=== PATIENT | female | born 1955 | race Caucasian/White ===

== ENCOUNTER 2021-03-03 04:07 | Observation (INO) | payer OTHER, MEDICAID ==
[~2021-03-03] VITALS: Ht 167.6 cm; Wt 125.1 kg
[2021-03-03 04:09] VITALS: BP 118/70
[2021-03-03] MEDS ORDERED: CYMBALTA60 MG PO (04:14)
[2021-03-03] MEDS ORDERED: KLOR-CON M2020 MEQ PO (04:15)
[2021-03-03] MEDS ORDERED: GABAPENTIN600 M1 PO (04:15)
[2021-03-03] MEDS ORDERED: LASIX 40 MG TAB40 MG PO (04:15)
[2021-03-03] MEDS ORDERED: [UNRECOGNIZED DRUG - REMARK] (04:17)
[2021-03-03 05:12] LABS: ABSOLUTE EOSINOPHILS 0.1 thou/uL (0.0-0.7); ABSOLUTE MONOCYTES 0.4 thou/uL (0.0-1.2); BASOPHILS 0.3 %; EOSINOPHILS 2.6 %; HEMATOCRIT 28.2 % (37.0-47.0); HEMOGLOBIN 8.7 gm/dL (12.0-15.0); LYMPHOCYTES 22.8 %; MCH 25.6 pg (26.0-34.0); MCHC 31.1 g/dL (28.0-37.0); MCV 82.4 fL (80.0-100.0); MONOCYTES 9.2 %; MPV 7.2 fl. (7.2-11.1); NUCLEATED RBCS 0 /100WBC; PLATELET COUNT* 256 thou/uL (150-400); POLYS 65.1 %; RBC 3.42 mil/uL (4.20-5.00); RDW-CV 17.8 % (10.5-14.5); WBC 4.6 thou/uL (4.0-11.0)
[2021-03-03 05:23] LABS: CALCIUM 8.7 mg/dL (8.5-10.1); CREATININE 0.7 mg/dL (0.6-1.3); POTASSIUM 3.8 mmol/L (3.5-5.1)
[2021-03-03 05:26] LABS: PROTIME 10.5 Seconds (9.20-11.50)
[2021-03-03 05:34] LABS: ALBUMIN 2.9 g/dL (3.4-5.0); TOTAL BILIRUBIN 0.4 mg/dL (<0.1-1.0); TOTAL PROTEIN 6.1 g/dL (6.4-8.2)
[2021-03-03 05:48] LABS: INFLUENZA A ANTIGEN Negative (Negative); INFLUENZA B ANTIGEN Negative (Negative)
[2021-03-03 07:59] LABS: URINE BILIRUBIN NEGATIVE (Negative); URINE BLOOD NEGATIVE (Negative); URINE CLARITY CLEAR; URINE COLOR YELLOW; URINE GLUCOSE-RANDOM NEGATIVE (Negative); URINE KETONES NEGATIVE (Negative); URINE LEUKOCYTES-REFLEX NEGATIVE (Negative); URINE NITRITE-REFLEX NEGATIVE (Negative); URINE PROTEIN NEGATIVE (Negative); URINE SPECIFIC GRAVITY 1.015 (1.005-1.030); URINE UROBILINOGEN 0.2 E.U./dl (0.2-1.0)
[2021-03-03 08:07] LABS: AMP/METHAMP Negative (Negative); BARBITURATES Negative (Negative); BENZODIAZEPINES Negative (Negative); COCAINE Negative (Negative); METHADONE Negative (Negative); OPIATES Negative (Negative); PCP Negative (Negative); THC Negative (Negative)
[2021-03-03 10:52] VITALS: BP 106/65
[2021-03-03 13:51] VITALS: BP 111/52
--- NOTE | 2021-03-03 15:50 | 2DMMODE ---
[place] [address] 2 D/M-MODE ECHOCARDIOGRAM Name: ASHLEY PHELPS Room: [address] Valente[place]aldemarGeorge#: [id number] Admission: 03/03/21 Attend Phys: Chris Valdez, Discharge: Date of : 57 Date of Service: 03/03/21 1550 Report #: [id number] THIS REPORT FOR: cc: FAM - No family physician/PCP FAM - No family physician/PCP Fish Nicole MD [facility] ~ APPROVED REPORT Study performed: 03/03/2021 14:43:44 EXAM: Limited 2D, Doppler, and color-flow Echocardiogram Patient Location: In-Patient Room #: er Status: routine BSA: 2.27 HR: 73 bpm BP: 111/52 mmHg Rhythm: NSR Other Information Study Quality: Good Indications edema Tricuspid Valve RAP Estimate: 5.00 mmHg TR Peak Gr.: 28.83 mmHg RVSP: 33.00 mmHg PA Pressure: 33.00 mmHg Left Ventricle The left ventricle is normal size. There is normal LV segmental wall motion. There is normal left ventricular wall thickness. The left ventricular systolic function is normal. LVEF is 60-65%. Right Ventricle Right ventricle is mildly dilated. The right ventricular systolic function is normal. Atria The left atrium size is normal. Right atrium is mildly dilated. Aortic Valve The aortic valve [place] [address] 2 D/M-MODE ECHOCARDIOGRAM Name: ASHLEY PHELPS Room: [address] Oli#: [id number] Admission: 03/03/21 Attend Phys: Chris Valdez, Discharge: Date of : 57 Date of Service: 03/03/21 1550 Report #: [id number] Mitral Valve The mitral valve is normal in structure. Tricuspid Valve The tricuspid valve is normal in structure. Trace tricuspid regurgitation. Mild pulmonary hypertension. The RVSP is 35-40 mmHg. Pulmonic Valve The pulmonary valve is normal in structure. Great Vessels The aortic root is normal in size. IVC is normal in size and collapses >50% with inspiration. Pericardium There is no pericardial effusion. <Conclusion> The left ventricle is normal size. There is normal left ventricular wall thickness. The left ventricular systolic function is normal. LVEF is 60-65%. There is normal LV segmental wall motion. Right ventricle is mildly dilated. Right atrium is mildly dilated. Trace tricuspid regurgitation. Mild pulmonary hypertension. The RVSP is 35-40 mmHg. IVC is normal in size and collapses >50% with inspiration. <ELECTRONICALLY SIGNED> By: Fish Nicole MD, [facility] 03/03/21 [id number] 1550 1550 Fish Nicole MD, [facility] /INF
[2021-03-03 15:58] LABS: CHOLESTEROL 127 mg/dL (<200); HDL CHOLESTEROL 69 mg/dL (>40); LDL CHOLESTEROL 48 mg/dL (<100); TC:HDL 1.8 Ratio (Not establshd); TRIGLYCERIDE 52 mg/dL (<150); VLDL 10 mg/dL (<40)
[2021-03-03 16:00] LABS: SERUM ASSESSMENT Clear
[2021-03-03 17:50] VITALS: BP 113/64
[2021-03-03 22:10] VITALS: BP 110/62
[2021-03-03 22:56] VITALS: BP 110/61
[2021-03-04 04:00] VITALS: BP 96/46
[2021-03-04 06:07] LABS: GLYCOHEMOGLOBIN (HGB A1C) 5.2 % (4.8-5.6)
--- NOTE | 2021-03-04 06:55 | NUR ---
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 CURRENT PAIN MEDICATION REGIMEN HAS BEEN ADEQUATE FOR CONTROLLING HER PAIN UP TO THIS TIME. SHE HAS BEEN ABLE TO COMMUNICATE HER NEEDS TO STAFF EFFECTIVELY UP TO THIS TIME.
[2021-03-04 09:00] VITALS: BP 108/52
--- NOTE | 2021-03-04 09:20 | NUR ---
Pt is admitted on 03/03/21 with cellulitis of her lower extremities. Pt is alert and oriented. Pt reports she has been living at a hotel ([facility]) for the last 4 months as she was evicted from her [facility] for allowing one of her son's to live with her. Pt ambulates with a walker and reports she also has a wheelchair. Pt reports she was previously independent in bathing and dressing. Pt reports history of fdc at the following facilities: [facility], [facility], [facility], and [facility]. Pt has 5 children. She one daugher who lives in [place]. She has 4 sons - that live in [facility] [place], and one who is currently homeless and living in patient's car. Pt reports since son has her car she is unable to get to her PCP in [place] and is in the process of attempting to find another PCP closer to her. She reports she has a friend in the fire department who is attempting to find her a Pen[address]iary Apartment. Pt is not vaccinated. Anticipate patient could need/benefit from SNF stay if she has days available and then transition to rn long term care care until she is able to find a Senior Apartment or Assisted Living. Pt may benefit from a referral to [facility]. CM to follow for discharge planning.
--- NOTE | 2021-03-04 10:21 | NUR ---
WOUND CARE: CONSULTED TO SEE PATIENT FOR LYMPHEDEMA TO BILATERAL LOWER EXTREMITY. BOTH LOWER LEGS NOTED TO HAVE 4+ PITTING EDEMA AND RED WARM TO TOUCH. RIGHT LEG MEASURES 57 AT CALF AND LEFT 59 AT [place]. PATIENT REPORTS LEGS ARE TENDER AND REQUEST ONLY LIGHT COMPRESSION TO START. BILATERAL TUBI MOBILE MARKETING MANAGER SIZE G APPLIED. TOLERATED WELL. BOTH LEGS ELEVATED ON PILLOW. PT EDUCATION ON MEASURES TO REDUCE EDEMA INCULDING PUMPING FOOT UP AND DOWN, ELEVATION AND COMPRESSION. PATIENT VOICED UNDERSTANDING AND AGREED. DENEIS ANY FURTHER QUESTIONS OR NEEDS AT THIS TIME.
[2021-03-04] MEDS ORDERED: VITAMIN D325 MC2 PO (11:12)
[2021-03-04] MEDS ORDERED: NORCO5 PO (11:12)
[2021-03-04] MEDS ORDERED: METOPROLOL SUCC25 M1 PO (11:12)
[2021-03-04] MEDS ORDERED: VITAMIN C1000 MG PO (11:12)
[2021-03-04] MEDS ORDERED: KEFLEX750 MG PO (11:12)
[2021-03-04 12:00] VITALS: BP 106/56
[2021-03-04 15:12] VITALS: BP 106/56
[2021-03-08] MEDS ORDERED: NORCO5 PO (13:59)
== END 2021-03-04 15:20 | disposition home or self-care (01) ==
LOC: M.ERS 04:07 → M.TBA-ER 06:39 → M.2W 06:39 → M.TBA-ER 15:51 → M.2W 22:46
PROVIDERS: Internal Medicine; Personal Emergency Response Attendant; ADMIT Internal Medicine; ATTEND Internal Medicine
DX: L03.115 Cellulitis of right lower limb (principal); L03.116 Cellulitis of left lower limb; I89.0 Lymphedema, not elsewhere classified; R65.10 Systemic inflammatory response syndrome (SIRS) of non-infectious origin without acute organ dysfunction; I48.0 Paroxysmal atrial fibrillation; E66.01 Morbid (severe) obesity due to excess calories; F32.9 Major depressive disorder, single episode, unspecified; F41.9 Anxiety disorder, unspecified; Z20.822 Contact with and (suspected) exposure to COVID-19; Z79.899 Other long term (current) drug therapy